=== PATIENT | male | born 2005 | race Two or more races ===

== ENCOUNTER 2025-07-26 11:47 | Emergency (ER) | payer OTHER ==
[2025-07-26] MEDS: Lidocaine/Epineph/Tetracaine 3 ML Syringe TOP ONE (12:28)
== END 2025-07-26 13:40 | disposition home or self-care (01) ==
LOC: JD.ED 11:47
DX: L02.213 Cutaneous abscess of chest wall (principal); Z79.899 Other long term (current) drug therapy
CPT/HCPCS: 10060; 99283; A9270; J2003